=== PATIENT | female | born 2000 | race Two or more races ===

== ENCOUNTER 2020-04-26 16:13 | Emergency (ER) | payer MEDICAID, OTHER ==
[~2020-04-26] VITALS: Ht 167.6 cm; Wt 49.9 kg
[2020-04-26 16:33] VITALS: BP 111/61
== END 2020-04-26 21:02 | disposition home or self-care (01) ==
LOC: ER 16:13
DX: U07.1 COVID-19 (principal); J06.9 Acute upper respiratory infection, unspecified
CPT/HCPCS: 71045; 87070; 87635; 87804; 87880